=== PATIENT | female | born 1970 | race Caucasian/White ===

== ENCOUNTER 2017-01-21 10:04 | Outpatient (CLI) | payer OTHER ==
--- NOTE | 2017-01-22 20:21 | Mammography Report ---
DIGITAL SCREENING MAMMOGRAM: 01/21/2017 CLINICAL INDICATION: A 46-year-old with history of late childbearing for screening. COMPARISON: 05/2014, 10/2010, 01/2009 TECHNIQUE: Routine CC and MLO projections were obtained of the breasts. FINDINGS: Scattered fibroglandular tissue is present within the breasts. There are no dominant alber s, suspicious microcalcifications, or secondary signs of malignancy. In comparison to the previous st udies, there are no significant changes. ASSESSMENT: NO MAMMOGRAPHIC EVIDENCE OF MALIGNANCY. NO SIGNIFICANT INTERVAL CHANGES. RECOMMENDATION: Screening mammography is recommended annually. BIRADS category 1 - negative. STANDARD QUALIFYING STATEMENTS 1. This examination was reviewed with the aid of Computed-Aided Detection (CAD). 2. A negative or benign imaging report should not delay biopsy if clinically suspicious findings are present. Consider surgical consultation if warranted. More than 5% of cancers are not identified by i maging. 3. Dense breasts may obscure an underlying neoplasm. JOB #: [id number] EXT JOB #:[id number]
== END 2017-01-21 10:05 | disposition home or self-care (01) ==
LOC: DI.N 10:04
PROVIDERS: ATTEND Physician Assistant Medical
DX: Z12.31 Encounter for screening mammogram for malignant neoplasm of breast (principal)
CPT/HCPCS: 77067

== ENCOUNTER 2019-11-17 11:55 | Emergency (ER) | payer OTHER ==
--- NOTE | 2019-11-17 13:02 | XRAY Report ---
Reason: Trauma Procedure Date: 11/17/2019 Accession Number: [id number] / [id number] Procedure: XR - Wrist 4 View RT CPT Code: Final Report FULL RESULT: EXAM: RIGHT WRIST RADIOGRAPHY EXAM DATE: 11/17/2019 12:29 PM. CLINICAL HISTORY: Wrist trauma. COMPARISON: None. TECHNIQUE: 3 views. FINDINGS: Bones: Normal. No fractures or bone lesions. Joints: Normal. No subluxations. Soft Tissues: Normal. No significant soft tissue swelling. IMPRESSION: Normal right wrist radiography. RADIA
--- NOTE | 2019-11-17 13:03 | XRAY Report ---
Reason: Trauma Procedure Date: 11/17/2019 Accession Number: [id number] / [id number] Procedure: XR - Ankle 3 View RT CPT Code: Final Report FULL RESULT: EXAM: RIGHT ANKLE RADIOGRAPHY EXAM DATE: 11/17/2019 12:29 PM. CLINICAL HISTORY: Right ankle trauma. 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 COMPARISON: None. TECHNIQUE: 3 views. FINDINGS: Bones: Nonspecific moderate well corticated plantar calcaneal enthesophyte. No fracture or focal bone lesion. Joints: Normal. No effusion. No subluxations. The ankle mortise is normally aligned. Soft Tissues: Normal. No soft tissue swelling. IMPRESSION: No fracture or malalignment at the right ankle. RADIA
--- NOTE | 2019-11-17 15:09 | XRAY Report ---
Reason: fall, pain Procedure Date: 11/17/2019 Accession Number: [id number] / [id number] Procedure: XR - Lumbar Spine 2 View CPT Code: Final Report FULL RESULT: EXAM: LUMBOSACRAL SPINE RADIOGRAPHY EXAM DATE: 11/17/2019 02:59 PM. CLINICAL HISTORY: Fall, low back pain. COMPARISONS: ABD/PEL 11/11/2009 2:57 PM. TECHNIQUE: 2 views. FINDINGS: Alignment: Normal. No spondylolisthesis or scoliosis. Bones: Five dai-swn-rzvetaj lumbar vertebral bodies are present. No fractures or bone lesions. Disks: Heights are maintained. There is mild anterior endplate osteophyte formation throughout the lumbar spine with a flowing configuration at T12-L1 and L2-L3, probably reflecting minimal diffuse idiopathic skeletal hyperostosis. Facets: No degenerative changes. Sacroiliac Joints: Unremarkable. Soft Tissues: Normal. The visualized bowel gas pattern is normal. IMPRESSION: 1. No fracture or subluxation in the lumbar spine. 2. Minimal diffuse idiopathic skeletal hyperostosis in the lumbar spine. RADIA
--- NOTE | 2019-11-17 15:37 | ED Physician Documentation ---
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 She states that she landed on the ground and caught herself on her right ankle and hand after landing on her sacral area,and then stumbled into a crate of mail that was on the ground.Patient did not hit her head or lose consciousness. No other injuries or complaints at this time. Patient states she has been able to ambulate on the right lower extremity but that she does have some pain in she is also been able to move her wrist. She does have a very distant fracture of the right wrist when she was in fourth grade. Review of Systems Ten Systems: 10 systems reviewed and negative Constitutional: reports: Reviewed and negative Eyes: reports: Reviewed and negative Ears: reports: Reviewed and negative Nose: reports: Reviewed and negative Throat: reports: Reviewed and negative Cardiac: reports: Reviewed and negative Respiratory: reports: Reviewed and negative GI: reports: Reviewed and negative : reports: Reviewed and negative Skin: reports: Reviewed and negative Musculoskeletal: reports: Back pain, Joint pain Neurologic: reports: Reviewed and negative Psychiatric: reports: Reviewed and negative Endocrine: reports: Reviewed and negative Immunocompromised: reports: Reviewed and negative PD PAST MEDICAL HISTORY - Past Medical History Past Medical History: No Cardiovascular: Hypertension Respiratory: Asthma Endocrine/Autoimmune: None GI: None : None HEENT: None Psych: Claustrophobia Musculoskeletal: None Derm: None - Past Surgical History Past Surgical History: Yes - Present Medications Home Medications: Ambulatory Orders Medication Instructions Recorded Confirmed Albuterol Sulfate [Proair Hfa] 8.5 gm IH BID 12/28/12 11/09/14 Hydrocodone/Acetaminophen 1 - 2 each PO Q6H PRN #15 tablet 11/03/14 11/09/14 [Hydrocodon-Acetaminophen 5-325] Mometasone/Formoterol [Dulera 200 8.8 gm 11/03/14 11/09/14 Mcg/5 Mcg Inhaler] NIFEdipine [Nifedipine] 10 mg PO DAILY 11/09/14 11/09/14 Acetaminophen with Codeine 1 each PO Q6HR #10 tablet 11/17/19 [Tylenol with Codeine #3 Tablet] - Allergies Allergies/Adverse Reactions: Allergies Allergy/AdvReac Type Severity Reaction Status Date / Time Sulfa (Sulfonamide Allergy Severe Hives Verified 11/17/19 12:00 Antibiotics) ibuprofen Allergy Intermediate asthma Verified 11/17/19 12:00 - Social History Does the pt smoke?: Yes Smoking Status: Current every day smoker Does the pt drink ETOH?: No Does the pt have substance abuse?: No - Immunizations Immunizations are current?: Yes PD ED PE NORMAL - Vitals Vital signs reviewed: Yes - General General: Alert and oriented X 3, No acute distress - HEENT HEENT: PERRL, EOMI, Moist mucous membranes - Neck Neck: Supple, no meningeal sign - Cardiac Cardiac: RRR, No murmur - Respiratory Respiratory: No respiratory distress, Clear bilaterally - Back Back: Other (Patient has tenderness over the L1-2 area of her spine. No step- off or other deformity.) - Derm Derm: Normal color, Warm and dry, No rash - Extremities Extremities: No deformity, Other (Patient has no deformity of either her right wrist or her right ankle. There is no tenderness over the patient's right foot, but does have tenderness over the medial aspect of her right ankle. Patient has tenderness over the ulnar aspect of her right wrist, as well.) - Neuro Neuro: Alert and oriented X 3 - Psych Psych: Normal mood, Normal affect Results - Vitals Vitals: Oxygen O2 Source Room air - Rads (name of study) R ankle XR Radiology: Final report received, EMP read indepedently, See rad report (neg) R wrist Radiology: Final report received, EMP read indepedently, See rad report (neg) Lumbar spine XR Radiology: Final report received, EMP read indepedently, See rad report (No fx) PD MEDICAL DECISION MAKING - ED course Complexity details: reviewed results, re-evaluated patient, considered differential, d/w patient ED course: Patient was worked up with x-rays of the right wrist and ankle, as well as the lumbar spine, all of which were found to be negative. I discussed home management of the symptoms with the patient, as well as the usual indications for return. Departure - Departure Disposition: 01 Home, Self Care Clinical Impression: Sprained ankle Qualifiers: Encounter type: initial encounter Involved ligament of ankle: unspecified ligament Laterality: right Qualified Code(s): S93.401A - Sprain of unspecified ligament of right ankle, initial encounter Right wrist sprain Qualifiers: Encounter type: initial encounter Qualified Code(s): S63.501A - Unspecified sprain of right wrist, initial encounter Back pain Qualifiers: Back pain location: low back pain Chronicity: acute Back pain laterality: midline Sciatica presence: without sciatica Qualified Code(s): M54.5 - Low back pain Condition: Stable Instructions: ED Sprain Wrist, ED Sprain Ankle Prescriptions: Acetaminophen with Codeine [Tylenol with Codeine #3 Tablet] 1 each PO Q6HR #10 tablet Comments: All of your x-ray series look good. You may use the ankle brace as needed for walking until you are feeling better. These follow-up with your primary care physician for any further concerns. You may use ibuprofen and Tylenol, as needed for pain, or you may use the Tylenol [address] of the Tylenol if he needs something stronger. Please also elevate and ice your ankle to help with the pain and any swelling that may occur. Discharge Date/Time: 11/17/19 15:56
[2019-11-17 16:02] VITALS: BP 136/82
== END 2019-11-17 15:56 | disposition home or self-care (01) ==
LOC: ED 11:55
DX: S93.401A Sprain of unspecified ligament of right ankle, initial encounter (principal); S63.501A Unspecified sprain of right wrist, initial encounter; M54.5 Low back pain; W17.89XA Other fall from one level to another, initial encounter; Y93.89 Activity, other specified; Y99.0 Civilian activity done for income or pay; I10 Essential (primary) hypertension; F17.200 Nicotine dependence, unspecified, uncomplicated
CPT/HCPCS: 72100; 99283; 99284

== ENCOUNTER 2020-09-19 09:23 | Outpatient (CLI) | payer OTHER ==
--- NOTE | 2020-09-20 10:12 | Mammography Report ---
BILATERAL DIGITAL SCREENING MAMMOGRAM 3D/2D: 09/19/2020 CLINICAL: Routine Screening. Comparison is made to exams dated: 01/21/2017 mammogram, 05/22/2014 mammogram, and 10/29/2010 mammogra m - [facility]. There are scattered fibroglandular elements in both breasts. No significant masses, calcifications, or other findings are seen in either breast. There has been no significant interval change. IMPRESSION: NEGATIVE There is no mammographic evidence of malignancy. A 1 year screening mammogram is recommended. This exam was interpreted at Station ID: [id number]. NOTE: For mammograms, a report in lay terms will be sent to the patient. Approximately 15% of breast malignancies will not be visualized mammographically. In the management of a palpable breast mass, a negative mammogram must not discourage biopsy of a clinically suspicious lesion. Electronically Signed By: Cody Hinojosa M.D. ddp/penrad:09/19/2020 10:10:12 ACR BI-RADS Category 1: Negative 3341F PARENCHYMAL PATTERN: (A) - The breast(s) demonstrate(s) scattered fibroglandular densities. BI-RADS CATEGORY: (1) - 1 RECOMMENDATION: (ANNUAL) - Recommend routine annual screening mammography. [id number] 1 year screening LATERALITY: (B)
== END 2020-09-19 09:24 | disposition home or self-care (01) ==
LOC: DI.N 09:23
DX: Z12.31 Encounter for screening mammogram for malignant neoplasm of breast (principal)

== ENCOUNTER 2020-10-31 09:20 | Day surgery (SDC) | payer OTHER ==
[2020-10-31] MEDS ORDERED: LACTATED RINGERS 1,000 ML IV ONE (09:31)
[2020-10-31] MEDS ORDERED: MIDAZOLAM 2 MG/2 ML VIAL ONE ×3 (11:01→11:17)
[2020-10-31] MEDS ORDERED: fentaNYL 250 MCG/5 ML VIAL ONE (11:01)
[2020-10-31] MEDS ORDERED: LACTATED RINGERS 850 ML IV ONE (11:28)
[2020-10-31 11:55] VITALS: BP 130/66
== END 2020-10-31 09:21 | disposition home or self-care (01) ==
LOC: SDS 09:20
PROVIDERS: ATTEND Surgery
DX: Z12.11 Encounter for screening for malignant neoplasm of colon (principal); K57.30 Diverticulosis of large intestine without perforation or abscess without bleeding; K64.4 Residual hemorrhoidal skin tags; K64.8 Other hemorrhoids; K58.9 Irritable bowel syndrome, unspecified; I10 Essential (primary) hypertension; J45.909 Unspecified asthma, uncomplicated; F17.200 Nicotine dependence, unspecified, uncomplicated; Z79.51 Long term (current) use of inhaled steroids; Z79.899 Other long term (current) drug therapy
CPT/HCPCS: 45378; J3010; J7120

== ENCOUNTER 2021-01-03 17:14 | Outpatient (CLI) | payer OTHER | END 2021-01-03 17:15 | disposition short-term general hospital (02) | LOC: EMS 17:14 | DX: Z04.1 Encounter for examination and observation following transport accident (principal); M54.5 Low back pain | CPT/HCPCS: A0425; A0429 ==

== ENCOUNTER 2021-11-27 08:49 | Outpatient (CLI) | payer OTHER ==
--- NOTE | 2021-11-27 14:52 | Mammography Report ---
BILATERAL DIGITAL SCREENING MAMMOGRAM 3D/2D: 11/27/2021 CLINICAL: Routine screening. Comparison is made to exams dated: 09/19/2020 mammogram, 01/21/2017 mammogram, and 05/22/2014 mammogra m - [facility]. There are scattered fibroglandular elements in both breasts. There is a possible 0.4 cm focal asymmetry in the left breast central to the nipple middle depth. Th is is more prominent. There also is a possible 0.6 cm irregular low density focal asymmetry in the left breast at 7 o'clock middle depth. This is more prominent. No other significant masses, calcifications, or other findings are seen in either breast. IMPRESSION: INCOMPLETE: NEEDS ADDITIONAL IMAGING EVALUATION The possible 0.4 cm focal asymmetry in the left breast central to the nipple middle depth is indeterm inate. Additional views with possible ultrasound are recommended. The possible 0.6 cm irregular low density focal asymmetry in the left breast at 7 o'clock middle dept h is indeterminate. Additional views with possible ultrasound are recommended. This exam was interpreted at Station ID: [id number]. NOTE: For mammograms, a report in lay terms will be sent to the patient. Approximately 15% of breast malignancies will not be visualized mammographically. In the management of a palpable breast mass, a negative mammogram must not discourage biopsy of a clinically suspicious lesion. Electronically Signed By: Boo Sarkar M.D. aty/:11/27/2021 10:11:06 ACR BI-RADS Category 0: Incomplete 3340F PARENCHYMAL PATTERN: (A) - The breast(s) demonstrate(s) scattered fibroglandular densities. BI-RADS CATEGORY: (0) - 0 Mammo and [place] [id number] Immediate follow-up LATERALITY: (L)
== END 2021-11-27 08:50 | disposition home or self-care (01) ==
LOC: DI.N 08:49
DX: Z12.31 Encounter for screening mammogram for malignant neoplasm of breast (principal); R92.8 Other abnormal and inconclusive findings on diagnostic imaging of breast

== ENCOUNTER 2022-07-22 12:09 | Outpatient (CLI) | payer OTHER ==
--- NOTE | 2022-07-23 12:04 | Ultrasound Report ---
LIMITED ULTRASOUND OF LEFT BREAST: 07/22/2022 CLINICAL: Patient returns today to evaluate a focal asymmetry in the left breast. Comparison is made to exams dated: 07/22/2022 mammogram, 01/15/2022 ultrasound, 01/15/2022 mammogram, 11/09 mammogram, 09/19/2020 mammogram, and 01/21/2017 mammogram - [facility]. Ultrasound of the left breast 6-7 o'clock region was performed. Murphy scale images of the real-time examination were reviewed. No significant abnormalities were seen sonographically in the left breast. Specifically, no finding to correspond to the patient's 7:00 mammographic abnormality. IMPRESSION: PROBABLY BENIGN There is no sonographic correlate to the patient's mammographic abnormality in the 7:00 position. Of note, an asymmetry in this location has been present since 2013. A follow-up left mammogram in 6 months is recommended to demonstrate continued stability. Findings and recommendations were conveyed to the patient at time of exam. This exam was interpreted at Station ID: [id number]. Electronically Signed By: Jessi herndon/:07/22/2022 13:39:24 Ultrasound BI-RADS: 3 Probably benign BI-RADS CATEGORY: (3) - 3 Mammogram [id number] 6 month follow-up LATERALITY: (L)
--- NOTE | 2022-07-23 12:04 | Mammography Report ---
UNILATERAL LEFT DIGITAL DIAGNOSTIC MAMMOGRAM 3D/2D: 07/22/2022 CLINICAL: Patient returns for a 6 month follow up of the left breast. Comparison is made to exams dated: 01/15/2022 mammogram, 11/27/2021 mammogram, and 09/19/2020 mammogram - [facility]. The left breast is almost entirely fatty (category a/<25% glandular tissue). There is a 5 mm irregular equal density focal asymmetry with a spiculated margin in the left breast a t 7 o'clock middle depth. This is seen in additional views. This is more prominent. No other significant masses or calcifications are seen in the breast. IMPRESSION: INCOMPLETE: NEEDS ADDITIONAL IMAGING EVALUATION The 5 mm irregular equal density focal asymmetry in the left breast persists and remains indeterminat e. An ultrasound is recommended. This was performed immediately following this exam. Based on the Tyrer Cuzick model (a risk assessment model) the patients lifetime risk is 10.2% and he r 10 year risk is 2.8%. According to the ACR, ACS, and NCCN guidelines, an annual breast MRI exam migdalia ng with mammogram is recommended if the patients lifetime risk is 20% or greater. This exam was interpreted at Station ID: [id number]. NOTE: For mammograms, a report in lay terms will be sent to the patient. Approximately 15% of breast malignancies will not be visualized mammographically. In the management of a palpable breast mass, a negative mammogram must not discourage biopsy of a clinically suspicious lesion. Electronically Signed By: Jessi herndon/:07/22/2022 13:24:57 ACR BI-RADS Category 0: Incomplete 3340F PARENCHYMAL PATTERN: (F) - The breast(s) demonstrate(s) diffuse fatty replacement. BI-RADS CATEGORY: (0) - 0 Ultrasound [id number] Immediate follow-up LATERALITY: (B)
== END 2022-07-22 12:10 | disposition home or self-care (01) ==
LOC: DI 12:09
PROVIDERS: ATTEND Physician Assistant Medical
DX: R92.8 Other abnormal and inconclusive findings on diagnostic imaging of breast (principal)

== ENCOUNTER 2022-10-25 11:36 | Outpatient (CLI) | payer OTHER ==
[2022-10-25] MEDS ORDERED: iohexoL-300 100 ML VIAL ONE (11:42)
[2022-10-25] MEDS ORDERED: DIATR MEGLU/DIATRIZOATE SODIUM 120 ML BOTTLE ONE (11:42)
[2022-10-25 12:29] LABS: CREATININE 0.6 mg/dL (0.4-1.0)
[2022-10-25] MEDS ORDERED: iohexoL-300 100 ML VIAL IVP ONE (13:59)
[2022-10-25] MEDS ORDERED: DIATRIZOATE MEGLU/DIATRIZO SOD 30 ML BOTTLE PO ONE (13:59)
--- NOTE | 2022-10-25 19:22 | CT Report ---
PROCEDURE: ABDOMEN/PELVIS W INDICATIONS: DIVERTICULITIS CONTRAST: 100ml omni 300 TECHNIQUE: After the administration of IV and oral contrast, 5 mm thick sections acquired from the diaphragms to the symphysis. 5 mm thick coronal and sagittal reformats were acquired. For radiation dose reducti on, the following was used: automated exposure control, adjustment of mA and/or kV according to malick ent size. COMPARISON: 08/01/2022 FINDINGS: Image quality: Excellent. Lung bases and heart: At least one calcified granuloma can be seen at the right lung base, as on seri es 4 image 3. Liver: Unremarkable. Gallbladder and biliary tree: The gallbladder is decompressed at the time of this study. No biliary d ilatation can be seen. Spleen: Unremarkable. Pancreas: Unremarkable. Adrenals: Unremarkable. Kidneys and ureters: Unremarkable. Bowel and peritoneum: No bowel distension. No pathologic free fluid. A normal appendix is incidentall y noted. Moderate distal colonic diverticulosis is seen, without findings of active diverticulitis. Lymph nodes: No central or retroperitoneal adenopathy. Vessels: Unremarkable. PELVIS Reproductive organs: The uterus demonstrates an unremarkable appearance for age. No adnexal masses ar e seen. Bladder: Unremarkable. Lymph nodes: Unremarkable. Bones: No aggressive osseous abnormality. Age-appropriate degenerative changes are seen. Other: Pelvic varices are seen, with asymmetric prominence of the left canal vein. IMPRESSION: Moderate distal colonic diverticulosis is seen, without findings of active diverticulitis. The sigmoi d colon demonstrates an improved appearance compared to 08/01/2022. Pelvic varices are seen, with asymmetric prominence of the left canal vein. Additional findings: Prior granulomatous exposure. Normal appendix Reviewed by: Crow Negrete MD on 10/25/2022 6:21 PM [facility] Approved by: Crow Negrete MD on 10/25/2022 6:21 PM [facility] Station ID: [id number]
== END 2022-10-25 11:37 | disposition home or self-care (01) ==
LOC: DI 11:36
PROVIDERS: ATTEND Physician Assistant Medical
DX: K57.30 Diverticulosis of large intestine without perforation or abscess without bleeding (principal); I86.2 Pelvic varices
CPT/HCPCS: 36415; 74177; 82565; Q9963; Q9967

== ENCOUNTER 2023-08-06 10:08 | Outpatient (CLI) | payer OTHER ==
--- NOTE | 2023-08-09 09:33 | Mammography Report ---
UNILATERAL LEFT DIGITAL DIAGNOSTIC MAMMOGRAM 3D/2D: 08/06/2023 CLINICAL: Patient returns for a 6 month follow up of the left breast. Comparison is made to exams dated: 01/26/2023 mammogram, 07/22/2022 mammogram, 01/15/2022 mammogram, 11/09 mammogram, and 09/19/2020 mammogram - [facility]. The left breast is almost entirely fatty (category a/<25% glandular tissue). There is a focal asymmetry in the left breast at 7 o'clock middle depth. This is more prominent and increased in size. There is associated architectural distortion. There also are two adjacent stable benign focal asymmetries in the left breast at 5 o'clock anterior depth. One correlated with a benign cyst and the second was not seen on the prior ultrasound. These were described as benign. No other significant masses or calcifications are seen in the breast. IMPRESSION: INCOMPLETE: NEEDS ADDITIONAL IMAGING EVALUATION The focal asymmetry in the left breast at 7 o'clock middle depth is indeterminate. A targeted ultras ound of the left breast is recommended and will be performed immediately following this exam. Based on the Tyrer Cuzick model (a risk assessment model) the patient's lifetime risk is 10.1% and he r 10 year risk is 2.9%. According to the ACR, ACS, and NCCN guidelines, an annual breast MRI exam migdalia ng with mammogram is recommended if the patients lifetime risk is 20% or greater. This exam was interpreted at Station ID: [id number]. NOTE: For mammograms, a report in lay terms will be sent to the patient. Approximately 15% of breast malignancies will not be visualized mammographically. In the management of a palpable breast mass, a negative mammogram must not discourage biopsy of a clinically suspicious lesion. Electronically Signed By: Boo Sarkar M.D. aty/:08/09/2023 09:28:13 ACR BI-RADS Category 0: Incomplete 3340F PARENCHYMAL PATTERN: (F) - The breast(s) demonstrate(s) diffuse fatty replacement. BI-RADS CATEGORY: (0) - 0 Ultrasound [id number] Immediate follow-up LATERALITY: (L)
--- NOTE | 2023-08-09 09:34 | Ultrasound Report ---
LIMITED ULTRASOUND OF LEFT BREAST: 08/06/2023 CLINICAL: Patient returns today to evaluate a focal asymmetry in the left breast. Comparison is made to exams dated: 01/26/2023 ultrasound, 08/06/2023 mammogram, 01/26/2023 mammogram, ultrasound, 07/22/2022 mammogram, and 01/15/2022 ultrasound - [facility]. Color flow and real-time ultrasound of the left breast 7-9 o'clock region were performed. Murphy scal e images of the real-time examination were reviewed. There is a possible 0.5 cm x 0.4 cm x 0.4 cm irregular area of fibrocystic tissue in the left breast at 7 o'clock middle depth 7 cm from the nipple. This irregular area of fibrocystic tissue is hypoech oic. Color flow imaging demonstrates that there is no vascularity present. IMPRESSION: SUSPICIOUS OF MALIGNANCY The possible 0.5 cm x 0.4 cm x 0.4 cm irregular area of hypoechoic tissue in the left breast 7 o'cloc k middle depth resembles fibrocystic change but may or may not definitively correlate with developing density in the left breast that although may have been seen on comparison mammograms dating back to 2013, it has demonstrated suspected slow interval increase in conspicuity, architectural distortion, and density since 2020 and is at a low suspicion for malignancy. A stereotactic biopsy is recommende d. Findings and recommendations were discussed with the patient by Dr. Sanchez during today's examination. This exam was interpreted at Station ID: [id number]. Electronically Signed By: Boo Sarkar M.D. aty/:08/06/2023 16:52:41 Ultrasound BI-RADS: 4a Low suspicion for malignancy BI-RADS CATEGORY: (4a) - Low Susp Biopsy [id number] Immediate follow-up LATERALITY: (L)
== END 2023-08-06 10:09 | disposition home or self-care (01) ==
LOC: DI 10:08
PROVIDERS: ATTEND Physician Assistant Medical
DX: R92.8 Other abnormal and inconclusive findings on diagnostic imaging of breast (principal)

== ENCOUNTER 2023-08-12 07:51 | Outpatient (CLI) | payer OTHER ==
--- NOTE | 2023-08-12 13:18 | XRAY Report ---
PROCEDURE: Shoulder 3 View RT INDICATIONS: RIGHT SHOULDER PAIN TECHNIQUE: 3 views of the shoulder were acquired. COMPARISON: None. FINDINGS: Bones: No fractures or dislocations. No suspicious bony lesions. Visualized ribs appear intact. Mild acromioclavicular degenerative narrowing. Soft tissues: No suspicious soft tissue calcifications. The visualized lungs are within normal limi ts. IMPRESSION: No visualized acute fracture or dislocation. However, occult injury cannot be excluded. Recommend antonio rt interval imaging follow-up in 7-10 days as clinically indicated for additional evaluation. Reviewed by: Sue Marcelo MD on 08/12/2023 1:17 PM [facility] Approved by: Sue Marcelo MD on 08/12/2023 1:17 PM [facility] Station ID: [id number]
== END 2023-08-12 23:59 | disposition home or self-care (01) ==
LOC: DI.WOS 07:51
PROVIDERS: ATTEND Physician Assistant Surgical
DX: S46.011D Strain of muscle(s) and tendon(s) of the rotator cuff of right shoulder, subsequent encounter (principal)

== ENCOUNTER 2023-08-17 08:03 | Outpatient (CLI) | payer OTHER ==
[2023-08-17] MEDS ORDERED: LIDOCAINE-MPF 1% 5 ML VIAL ONE (08:15)
[2023-08-17] MEDS ORDERED: LIDOCAINE 1%-EPI 1:100000 50 ML VIAL ONE (08:15)
[2023-08-17] MEDS: LIDOCAINE-MPF 1% 5 ML VIAL TD ONE (10:22)
[2023-08-17] MEDS: LIDOCAINE 1%-EPI 1:100000 50 ML VIAL TD SCH (10:23)
[2023-08-17] MEDS ORDERED: LIDOCAINE 1%-EPI 1:100000 50 ML VIAL TD ONE (11:00)
--- NOTE | 2023-08-20 17:18 | Mammography Report ---
STEREOTACTIC GUIDED BIOPSY LEFT BREAST USING VACUUM DEVICE WITH MARKING DEVICE INSERTED- - LEFT BREAS T POST-PROCEDURE IMAGING FOR MARKER PLACEMENT: 08/17/2023 CLINICAL: Left stereotactic biopsy for architectural distortion. Correlation is made to exams dated: 08/06/2023 mammogram, 01/26/2023 mammogram, 08/06/2023 ultrasound, 01/26/2023 ultrasound, 07/22/2022 ultrasound, and 07/22/2022 mammogram - [facility]. A stereotactic guided biopsy was performed for the concerning irregular shaped asymmetry located in t he left breast at 7 o'clock middle depth. This was described on the previous mammography report. Th e skin was prepped in the usual manner. Local anesthetic was administered to the access site. A ski n felipe was made in the breast. The abnormality was approached from the lateral aspect. A 10 gauge b iopsy needle was placed adjacent to the abnormality under computer guidance and confirmatory stereota ctic mammography images were obtained to document needle placement. Once the needle was documented t o be in the correct location, eight specimens were obtained using a vacuum assisted device. A clip w as inserted into the biopsy cavity. Post procedure imaging demonstrates the location device at the t argeted area. The specimens were sent to the laboratory for pathological analysis. IMPRESSION: STEREOTACTIC GUIDED BIOPSY BENIGN Stereotactic guided biopsy of the asymmetry in the left breast at 7 o'clock middle depth was successf ul. Pathology indicates benign proliferative fibrocystic changes (FC). Pathology results are concor dant with imaging findings. Recommend follow up mammogram in 6 months to demonstrate stability. This exam was interpreted at Station ID: [id number]. Carlitos Cano M.D. Wanda Collins M.D., PH.D ,/:08/20/2023 16:55:36 BI-RADS CATEGORY: () - Unspecified - other recall n/a LATERALITY: (B)
== END 2023-08-17 08:04 | disposition home or self-care (01) ==
LOC: DI 08:03
PROVIDERS: ATTEND Physician Assistant Medical
DX: N60.12 Diffuse cystic mastopathy of left breast (principal)
CPT/HCPCS: 19081; J3490

== ENCOUNTER 2023-10-16 08:06 | Outpatient (CLI) | payer OTHER ==
--- NOTE | 2023-10-22 14:56 | MRI Report ---
Shoulder RT WO CLINICAL HISTORY: 53 years of age, Female, ROTATOR CUFF TEAR. Comparison: No priors available Technique: Multiplanar, multisequence MRI of the right shoulder was performed without intravenous co ntrast. IV Contrast: Not Administered. Findings: Osseous acromial outlet: Mild degenerative changes at the acromioclavicular joint. Type I acromion on sagittal imaging. No os acromiale. Mild subacromial/subdeltoid bursal fluid. Rotator cuff muscles and tendons: In the supraspinatus, there is full-thickness tear of the anterior footprint, extending to a low grade interstitial tear in the posterior footprint. No tendon retractio n of the supraspinatus. There is low-grade, bursal sided tear of the infraspinatus (7:11). The teres minor is unremarkable. Mild tendinosis of the subscapularis with low-grade interstitial tearing of th e superior fibers. Muscles are intact without evidence of atrophy or edema. Labral and capsular structures: Superior labral tear, extending into the anterior superior labrum. No pericardial process. Biceps tendon and anchor: The intra-articular biceps tendon is unremarkable. The intra-articular monica ps tendon is unremarkable as well. Osseous and cartilaginous structures: Multifocal mild subchondral cystic changes at the humeral head, reactive. No focal chondral defect. Miscellaneous: No significant glenohumeral effusion. Mild subcoracoid bursitis. No intra-articular bodies. The remaining muscles are normal in bulk without evidence of atrophy or edema. IMPRESSION: 1.Full-thickness tear at the anterior footprint of the supraspinatus, extending to the low-grade inte rstitial tear at the posterior footprint. 2.Low-grade tear of the infraspinatus and the subscapularis. 3.Mild subcoracoid bursitis. Reviewed by: Trinidad No MD on 10/18/2023 9:48 PM PDT Approved by: Trinidad No MD on 10/18/2023 9:48 PM PDT Station ID: [id number]
== END 2023-10-16 08:07 | disposition home or self-care (01) ==
LOC: DI 08:06
PROVIDERS: ATTEND Physician Assistant Surgical
DX: M75.121 Complete rotator cuff tear or rupture of right shoulder, not specified as traumatic (principal); M75.51 Bursitis of right shoulder

== ENCOUNTER 2024-03-03 09:39 | Outpatient (CLI) | payer OTHER ==
--- NOTE | 2024-03-06 08:51 | Mammography Report ---
BILATERAL DIGITAL DIAGNOSTIC MAMMOGRAM 3D/2D: 03/03/2024 CLINICAL: Patient returns for a 6 month follow up of the left breast, due for bilateral exam. Comparison is made to exams dated: 08/17/2023 stereotactic biopsy, 08/06/2023 mammogram, 01/26/2023 mamm ogram, 07/22/2022 mammogram, 01/15/2022 mammogram, and 11/27/2021 mammogram - [facility] Both breasts are almost entirely fatty (category a/<25% glandular tissue). There is an irregular focal asymmetry in the left breast at 7 o'clock middle depth. This is not sign ificantly changed and correlates with the biopsy. There is a biopsy clip associated with the focal a symmetry. No other significant masses, calcifications, or other findings are seen in either breast. IMPRESSION: INCOMPLETE: NEEDS ADDITIONAL IMAGING EVALUATION Redemonstration of the irregular focal asymmetry in the left breast with pathology results indicating fibrocystic change on biopsy. There was question of whether this finding correlated with previously described hypoechoic area on comparison ultrasound. A targeted ultrasound of the left breast is rec ommended and will be performed immediately following this exam. Based on the Tyrer Cuzick model (a risk assessment model) the patient's lifetime risk is 9.9% and her 10 year risk is 3.0%. According to the ACR, ACS, and NCCN guidelines, an annual breast MRI exam kat g with mammogram is recommended if the patient's lifetime risk is 20% or greater. This exam was interpreted at Station ID: [id number]. NOTE: For mammograms, a report in lay terms will be sent to the patient. Approximately 15% of breast malignancies will not be visualized mammographically. In the management of a palpable breast mass, a negative mammogram must not discourage biopsy of a clinically suspicious lesion. Electronically Signed By: Boo Sarkar M.D. aty/:03/03/2024 10:32:40 ACR BI-RADS Category 0: Incomplete 3340F PARENCHYMAL PATTERN: (F) - The breast(s) demonstrate(s) diffuse fatty replacement. BI-RADS CATEGORY: (0) - 0 Ultrasound [id number] Immediate follow-up LATERALITY: (L)
--- NOTE | 2024-03-06 08:51 | Ultrasound Report ---
LIMITED ULTRASOUND OF LEFT BREAST: 03/03/2024 CLINICAL: Patient returns for a 6 month follow up of the left breast. Comparison is made to exams dated: 08/17/2023 stereotactic biopsy, 03/03/2024 mammogram, 08/06/2023 ultr asound, 08/06/2023 mammogram, 01/26/2023 ultrasound, and 01/26/2023 mammogram - [facility]. Color flow and real-time ultrasound of the left breast 7 o'clock region were performed. Murphy scale images of the real-time examination were reviewed. No significant abnormalities were seen sonographically in the left breast. No sonographic abnormalities seen at the 7 o'clock 7 cm from nipple at site of previosly described po ssibe hypoechoic lesion. No suspicious findings seen on today's mammogram. Biopsy result of the mammo graphic finding showed benign pathology. IMPRESSION: BENIGN There is no sonographic evidence of malignancy. There is no abnormality seen in the left breast to correspond with the area of clinical concern, site of previous benign biopsy, and mammography finding. A 1 year screening mammogram is recommended. Findings and recommendations were conveyed to the patient during today's evaluation. This exam was interpreted at Station ID: [id number]. Electronically Signed By: Boo Sarkar M.D. aty/:03/03/2024 12:06:15 Ultrasound BI-RADS: 2 Benign BI-RADS CATEGORY: (2) - 2 RECOMMENDATION: (ANNUAL) - Recommend routine annual screening mammography. [id number] 1 year screening LATERALITY: (B)
== END 2024-03-03 09:40 | disposition home or self-care (01) ==
LOC: DI 09:39
PROVIDERS: ATTEND Physician Assistant Medical
DX: R92.8 Other abnormal and inconclusive findings on diagnostic imaging of breast (principal)